=== PATIENT | female | born 1975 | race Caucasian/White ===

== ENCOUNTER 2017-08-29 19:10 | Emergency (ER) | payer OTHER ==
[~2017-08-29] VITALS: Ht 154.9 cm; Wt 75.1 kg
[~2017-08-29 19:10] MED LIST: HYDR-3533 PO; NAPR-576 PO
[2017-08-29 19:18] VITALS: BP 130/65; PULSE 66; RESP 16; TEMP 97.9; O2SAT 100
[2017-08-29] MEDS ORDERED: LEVO25TA4 PO (19:22)
[2017-08-29 19:41] VITALS: BP 138/76; PULSE 62; RESP 18; O2SAT 100
[2017-08-29] MEDS ORDERED: ACETAMINOPHEN 500 MG CPLT PO ONE (19:45)
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
[2017-08-29 20:37] VITALS: BP 134/70; PULSE 68; RESP 18; O2SAT 100
[2017-08-29 20:56] VITALS: RESP 18
[2017-08-29] MEDS ORDERED: IBUP-232 PO (21:13)
[2017-08-29] MEDS ORDERED: ROBA750T PO (21:13)
[2017-08-29 21:26] VITALS: BP 119/69
== END 2017-08-29 21:52 | disposition home or self-care (01) ==
LOC: PHED 19:10
DX: S09.90XA Unspecified injury of head, initial encounter (principal); M54.2 Cervicalgia; S40.021A Contusion of right upper arm, initial encounter; S80.11XA Contusion of right lower leg, initial encounter; Y04.8XXA Assault by other bodily force, initial encounter; R51 Headache; R42 Dizziness and giddiness; E03.9 Hypothyroidism, unspecified; F41.9 Anxiety disorder, unspecified; F32.9 Major depressive disorder, single episode, unspecified
CPT/HCPCS: 70450; 72125; 84703; 99284